=== PATIENT | male | born 1960 | race Caucasian/White ===

== ENCOUNTER 2024-11-21 10:09 | Emergency (ER) | payer MEDICARE, BC ==
[~2024-11-21] VITALS: Ht 182.9 cm; Wt 101.5 kg
[2024-11-21 12:12] LABS: BASO # 0.1 10^3/uL (0.0-0.2); BASO % 1.2 % (0.0-1.0); EOS # 0.1 10^3/uL (0.0-0.5); EOS % 1.2 % (0.0-3.0); LYMPH # 1.3 10^3/uL (1.5-5.0); LYMPH % 19.1 % (24.0-44.0); MONO # 1.0 10^3/uL (0.0-0.8); MONO % 15.1 % (2.0-8.0); NEUTROPHILS # 4.3 10^3/uL (1.5-8.5); NEUTROPHILS % 63.0 % (36.0-66.0); PLATELET COUNT, AUTOMATED 157 10^3/uL (150-450)
[2024-11-21] MEDS ORDERED: ISOVUE-370 76% 100 ML VIAL As Ordered ONE (12:13)
[2024-11-21 12:42] LABS: ALT/SGPT 33 U/L (7.0-40); AST/SGOT 46 U/L (<34); CALCIUM LEVEL 9.3 MG/DL (8.3-10.6); CARBON DIOXIDE LEVEL 23 MMOL/L (20-31); CHLORIDE LEVEL 109 MMOL/L (98-107); CREATININE FOR GFR 0.73 MG/DL (0.70-1.30); GLOMERULAR FILTRATION RATE > 90.0 (>49); POTASSIUM SERUM 4.5 MMOL/L (3.5-5.1); SODIUM LEVEL 142 MMOL/L (136-145)
[2024-11-21 13:19] LABS: INR 3.18
[2024-11-21] MEDS: LIDOCAINE 5% PATCH TD ONE (13:46)
[2024-11-21] MEDS ORDERED: ZITHTAB PO (15:32)
[2024-11-21] MEDS ORDERED: AMOX875T2 PO (15:32)
[2024-11-21] MEDS ORDERED: LIDO1ADH93 TOP (15:32)
[2024-11-21] MEDS ORDERED: ACET-716 PO ×2 (15:35→15:41)
[2024-11-21 15:55] VITALS: BP 145/83; TEMP 97.8; O2SAT 96
== END 2024-11-21 16:09 | disposition home or self-care (01) ==
LOC: EDBD 10:09 → M ED 10:09
DX: J18.9 Pneumonia, unspecified organism (principal); S22.41XA Multiple fractures of ribs, right side, initial encounter for closed fracture; Y92.9 Unspecified place or not applicable; Y93.9 Activity, unspecified; Y99.9 Unspecified external cause status; W07.XXXA Fall from chair, initial encounter; E78.5 Hyperlipidemia, unspecified; I25.2 Old myocardial infarction; F10.10 Alcohol abuse, uncomplicated; Z86.73 Personal history of transient ischemic attack (TIA), and cerebral infarction without residual deficits
CPT/HCPCS: 36415; 70450; 71275; 72125; 74177; 80047; 80048; 80076; 85025; 85610; 85730; 93005; 99285; Q9967